=== PATIENT | female | born 1950 | race Caucasian/White ===

== ENCOUNTER 2017-03-09 13:15 | Emergency (ER) | payer BC | END 2017-03-09 14:42 | disposition home or self-care (01) | LOC: ER 13:15 | DX: K59.00 Constipation, unspecified (principal); S83.91XA Sprain of unspecified site of right knee, initial encounter; Z88.5 Allergy status to narcotic agent; Z88.8 Allergy status to other drugs, medicaments and biological substances; X50.1XXA Overexertion from prolonged static or awkward postures, initial encounter | CPT/HCPCS: 73560-RT; 96372; 99283 ==